=== PATIENT | female | born 1945 | race Caucasian/White ===

== ENCOUNTER → 2017-12-25 08:23 | Outpatient (CLI) | payer MEDICARE, SELFPAY ==
[2017-12-25 09:03] LABS: Basophils % 0.4 % (0.1-2.0); Eosinophils % 0.8 % (0.1-12.0); Hematocrit 41.4 % (37.0-47.0); Hemoglobin 13.6 g/dL (12.2-16.2); Lymphocytes # 1.3 K/mm3 (0.7-4.5); Mean Corpuscular HGB Conc 32.8 g/dL (31.8-35.4); Mean Corpuscular Volume 91.7 fl (81-99); Mean Platelet Volume 6.8 fl (7.4-10.4); Monocytes # 0.4 K/mm3 (0.1-1.0); Monocytes % 7.4 % (1.7-9.3); Neutrophils # 3.7 K/mm3 (1.8-7.8); Neutrophils % 67.3 % (37.0-80.0); Platelet Count 300 K/mm3 (142-424); Red Blood Count 4.51 M/mm3 (4.20-5.40); Red Cell Distribution Width 12.4 % (11.5-17.5); White Blood Count 5.4 K/mm3 (4.8-10.8)
[2017-12-25 09:27] LABS: Alanine Aminotransferase 47 U/L (12-78); Albumin Level 3.6 gm/dL (3.4-5.0); Alkaline Phosphatase 105 U/L (46-116); Anion Gap 13.7 mEq/L (5-15); Aspartate Amino Transferase 25 U/L (15-37); Bilirubin,Total 0.6 mg/dL (0.2-1.0); Blood Urea Nitrogen 7 mg/dL (7-18); Calcium 9.8 mg/dL (8.5-10.1); Carbon Dioxide 28 mmol/L (21.0-32.0); Chloride 97 mmol/L (98-107); Cholesterol 172 mg/dL (140-200); Creatinine,Serum 0.74 mg/dL (0.55-1.02); Estimated Glomerular Filt Rate 78 ml/min (>60); GFR (African American) 94 ML/MIN (>60); Globulin 3.6 gm/dl (1.3-3.2); Glucose 154 mg/dL (74-106); HDL Cholesterol 58 mg/dL (29-89); LDL Cholesterol 91 mg/dL (0-130); Potassium 3.7 mmoL/L (3.5-5.1); Sodium 135 mmol/L (136-145); Total Protein,Serum 7.2 gm/dL (6.4-8.2); Triglycerides 113 mg/dL (30-200); VLDL Cholesterol 23 mg/dL (0-40)
[2017-12-25 09:36] LABS: Hemoglobin A1C 6.7 % (0.0-7.0)
[2017-12-26 15:24] LABS: Microalbumin, Urine 26.3 ug/mL (Not Estab.)
== END ==
PROVIDERS: Visit Provider Internal Medicine
DX: E11.42 Type 2 diabetes mellitus with diabetic polyneuropathy (principal); I10 Essential (primary) hypertension; E78.5 Hyperlipidemia, unspecified
CPT/HCPCS: 36415; 80053; 80061; 82043; 83036; 85025

== ENCOUNTER → 2018-02-05 17:08 | Outpatient (REF) | payer MEDICARE, SELFPAY | LOC: LAB 17:08 | PROVIDERS: Visit Provider Internal Medicine | DX: L03.032 Cellulitis of left toe (principal); E11.621 Type 2 diabetes mellitus with foot ulcer; L97.529 Non-pressure chronic ulcer of other part of left foot with unspecified severity | CPT/HCPCS: 87070; 87077; 87186; 87205 ==

== ENCOUNTER → 2019-02-07 10:34 | Outpatient (CLI) | payer MEDICARE, SELFPAY | PROVIDERS: PCP Internal Medicine; Visit Provider Internal Medicine | DX: R01.1 Cardiac murmur, unspecified (principal); I10 Essential (primary) hypertension | CPT/HCPCS: 93306 ==

== ENCOUNTER → 2019-06-08 07:50 | Outpatient (CLI) | payer MEDICARE, SELFPAY ==
[2019-06-08 08:58] LABS: Alanine Aminotransferase 34 U/L (12-78); Albumin Level 3.6 gm/dL (3.4-5.0); Albumin/Globulin Ratio 1.1 (1.1-1.8); Alkaline Phosphatase 128 U/L (46-116); Aspartate Amino Transferase 18 U/L (15-37); Bilirubin,Total 0.7 mg/dL (0.2-1.0); Blood Urea Nitrogen 11 mg/dL (7-18); Calcium 9.2 mg/dL (8.5-10.1); Carbon Dioxide 26 mmol/L (21.0-32.0); Chloride 98 mmol/L (98-107); Chol/HDL Ratio 2.7 (1-3.5); Cholesterol 216 mg/dL (140-200); Creatinine,Serum 0.81 mg/dL (0.55-1.02); Estimated Glomerular Filt Rate 70 ml/min (>60); GFR (African American) 84 ML/MIN (>60); Globulin 3.3 gm/dl (1.3-3.2); Glucose 145 mg/dL (74-106); HDL Cholesterol 81 mg/dL (29-89); LDL Cholesterol 118 mg/dL (0-130); Sodium 136 mmol/L (136-145); Total Protein,Serum 6.9 gm/dL (6.4-8.2); Triglycerides 86 mg/dL (30-200); VLDL Cholesterol 17 mg/dL (0-40)
[2019-06-08 09:03] LABS: Hemoglobin A1C 7.4 % (0.0-7.0)
[2019-06-13 05:18] LABS: Microalbumin, Urine 6.7 ug/mL (Not Estab.)
== END ==
PROVIDERS: Visit Provider Internal Medicine
DX: E11.42 Type 2 diabetes mellitus with diabetic polyneuropathy (principal); I10 Essential (primary) hypertension; E78.5 Hyperlipidemia, unspecified
CPT/HCPCS: 36415; 80053; 80061; 82043; 83036

== ENCOUNTER → 2020-01-04 08:39 | Outpatient (CLI) | payer MEDICARE, SELFPAY ==
[2020-01-04 09:41] LABS: Creatinine,Urine Random 53 mg/dL (Not Estab.); Hemoglobin A1C 6.2 % (4.0-6.0)
[2020-01-04 09:44] LABS: Microalbumin/Creatinine Ratio 44.1
[2020-01-04 10:03] LABS: Chloride 99 mmol/L (98-107); Potassium 4.2 mmoL/L (3.5-5.1); Sodium 136 mmol/L (136-145)
[2020-01-04 10:05] LABS: Alanine Aminotransferase 35 U/L (12-78); Aspartate Amino Transferase 37 U/L (14-36); Blood Urea Nitrogen 13 mg/dl (7-17); Estimated Glomerular Filt Rate 98 ml/min (>60); GFR (African American) 119 ML/MIN (>60)
[2020-01-04 10:06] LABS: Albumin Level 4.4 g/dl (3.5-5.0); Albumin/Globulin Ratio 1.8 (1.1-1.8); Alkaline Phosphatase 107 U/L (38-126); Anion Gap 14.2 mEq/L (5-15); Bilirubin,Total 0.9 mg/dl (0.2-1.3); Calcium 10.1 mg/dl (8.4-10.2); Carbon Dioxide 27 mmol/L (22.0-30.0); Chol/HDL Ratio 2.9 (1-3.5); Cholesterol 220 mg/dl (140-200); Globulin 2.5 g/dL (1.3-3.2); Glucose 133 mg/dl (74-100); HDL Cholesterol 75 mg/dl (40-60); Total Protein,Serum 6.9 g/dl (6.3-8.2); Triglycerides 181 mg/dl (30-150); VLDL Cholesterol 36 mg/dL (0-40)
[2020-01-04 10:17] LABS: Direct LDL Cholesterol 120.94 mg/dL (100-129)
== END ==
PROVIDERS: Visit Provider Internal Medicine
DX: E11.42 Type 2 diabetes mellitus with diabetic polyneuropathy (principal); E78.2 Mixed hyperlipidemia; I10 Essential (primary) hypertension
CPT/HCPCS: 36415; 80053; 80061; 82043; 82570; 83036

== ENCOUNTER → 2021-11-01 14:22 | Outpatient (CLI) | payer MEDICARE, SELFPAY ==
[2021-11-01 15:15] LABS: Basophils # 0.1 K/mm3 (0-0.2); Basophils % 1.3 % (0.1-2.0); Eosinophils # 0.1 K/mm3 (0.0-0.4); Eosinophils % 1.1 % (0.1-12.0); Hematocrit 37.5 % (37.0-47.0); Hemoglobin 12.9 g/dL (12.2-16.2); Lymphocytes # 1.6 K/mm3 (0.7-4.5); Mean Corpuscular HGB Conc 34.5 g/dL (31.8-35.4); Mean Corpuscular Hemoglobin 33.2 pg (27.0-31.2); Mean Corpuscular Volume 96.2 fl (81-99); Monocytes # 0.6 K/mm3 (0.1-1.0); Monocytes % 9.8 % (1.7-9.3); Neutrophils # 3.5 K/mm3 (1.8-7.8); Neutrophils % 59.8 % (37.0-80.0); Platelet Count 266 K/mm3 (142-424); Red Cell Distribution Width 13.3 % (11.5-17.5); White Blood Count 5.8 K/mm3 (4.8-10.8)
[2021-11-01 15:31] LABS: Alanine Aminotransferase 50 U/L (12-78); Albumin Level 4.3 g/dl (3.5-5.0); Albumin/Globulin Ratio 1.8 (1.1-1.8); Alkaline Phosphatase 129 U/L (38-126); Aspartate Amino Transferase 46 U/L (14-36); Bilirubin,Total 0.4 mg/dl (0.2-1.3); Blood Urea Nitrogen 13 mg/dl (7-17); Calcium 9.8 mg/dl (8.4-10.2); Carbon Dioxide 27 mmol/L (22.0-30.0); Chloride 94 mmol/L (98-107); Chol/HDL Ratio 3.2 (1-3.5); Cholesterol 210 mg/dl (140-200); Estimated Glomerular Filt Rate 70 ml/min (>60); GFR (African American) 85 ML/MIN (>60); Globulin 2.4 g/dL (1.3-3.2); Glucose 166 mg/dl (74-100); HDL Cholesterol 65 mg/dl (40-60); Sodium 131 mmol/L (136-145); Total Protein,Serum 6.7 g/dl (6.3-8.2); Triglycerides 112 mg/dl (30-150); VLDL Cholesterol 22 mg/dL (0-40)
[2021-11-01 15:40] LABS: Hemoglobin A1C 7.8 % (4.0-6.0)
[2021-11-01 15:41] LABS: Direct LDL Cholesterol 111.24 mg/dL (100-129)
[2021-11-01 16:03] LABS: Creatinine,Urine Random 21 mg/dL (Not Estab.)
[2021-11-01 16:07] LABS: Microalbumin/Creatinine Ratio 46.1
== END ==
PROVIDERS: PCP Internal Medicine; Visit Provider Internal Medicine
DX: E11.42 Type 2 diabetes mellitus with diabetic polyneuropathy (principal); E11.29 Type 2 diabetes mellitus with other diabetic kidney complication; E78.5 Hyperlipidemia, unspecified; M15.0 Primary generalized (osteo)arthritis; R80.1 Persistent proteinuria, unspecified
CPT/HCPCS: 80053; 80061; 82043; 82570; 83036; 85025

== ENCOUNTER → 2022-01-11 13:17 | Outpatient (CLI) | payer MEDICARE, SELFPAY ==
[2022-01-11 14:50] LABS: Creatinine,Urine Random 19 mg/dL (Not Estab.)
[2022-01-11 14:51] LABS: Basophils % 0.3 % (0.1-2.0); Eosinophils % 0.7 % (0.1-12.0); Hematocrit 35.9 % (37.0-47.0); Hemoglobin 12.2 g/dL (12.2-16.2); Lymphocytes # 0.8 K/mm3 (0.7-4.5); Lymphocytes % 12.4 % (10-50); Mean Corpuscular HGB Conc 34.1 g/dL (31.8-35.4); Mean Corpuscular Hemoglobin 32.1 pg (27.0-31.2); Mean Platelet Volume 7.7 fl (7.4-10.4); Monocytes # 0.6 K/mm3 (0.1-1.0); Monocytes % 8.2 % (1.7-9.3); Neutrophils # 5.3 K/mm3 (1.8-7.8); Neutrophils % 78.5 % (37.0-80.0); Platelet Count 280 K/mm3 (142-424); Red Blood Count 3.82 M/mm3 (4.20-5.40); Red Cell Distribution Width 12.8 % (11.5-17.5); White Blood Count 6.8 K/mm3 (4.8-10.8)
[2022-01-11 14:54] LABS: Microalbumin/Creatinine Ratio 40.5
[2022-01-11 15:14] LABS: Alanine Aminotransferase 35 U/L (12-78); Albumin/Globulin Ratio 1.6 (1.1-1.8); Alkaline Phosphatase 121 U/L (38-126); Anion Gap 12.4 mEq/L (5-15); Aspartate Amino Transferase 35 U/L (14-36); Bilirubin,Total 0.5 mg/dl (0.2-1.3); Blood Urea Nitrogen 13 mg/dl (7-17); Calcium 9.9 mg/dl (8.4-10.2); Carbon Dioxide 28 mmol/L (22.0-30.0); Chloride 95 mmol/L (98-107); Chol/HDL Ratio 2.9 (1-3.5); Cholesterol 187 mg/dl (140-200); Estimated Glomerular Filt Rate 98 ml/min (>60); GFR (African American) 118 ML/MIN (>60); Globulin 2.5 g/dL (1.3-3.2); Glucose 151 mg/dl (74-100); HDL Cholesterol 64 mg/dl (40-60); Potassium 4.4 mmoL/L (3.5-5.1); Sodium 131 mmol/L (136-145); Total Protein,Serum 6.5 g/dl (6.3-8.2); Triglycerides 109 mg/dl (30-150); VLDL Cholesterol 22 mg/dL (0-40)
[2022-01-11 15:25] LABS: Direct LDL Cholesterol 97.24 mg/dL (100-129)
[2022-01-11 15:33] LABS: Hemoglobin A1C 7.1 % (4.0-6.0)
== END ==
PROVIDERS: PCP Internal Medicine; Visit Provider Internal Medicine
DX: E11.42 Type 2 diabetes mellitus with diabetic polyneuropathy (principal); E11.29 Type 2 diabetes mellitus with other diabetic kidney complication; I10 Essential (primary) hypertension; I87.2 Venous insufficiency (chronic) (peripheral); E78.5 Hyperlipidemia, unspecified; R80.1 Persistent proteinuria, unspecified; I89.0 Lymphedema, not elsewhere classified
CPT/HCPCS: 80053; 80061; 82043; 82570; 83036; 85025

== ENCOUNTER → 2022-01-25 16:23 | Outpatient (CLI) | payer MEDICARE, SELFPAY ==
--- NOTE | 2022-01-25 16:31 | XR_ITS ---
PROCEDURE INFORMATION: Exam: XR Right Toe(s) Exam date and time: 01/25/2022 4:33 PM Age: 76 years old Clinical indication: Condition or disease; Other: Right great toe infected; Additional info: Ulcer infected TECHNIQUE: Imaging protocol: Radiologic exam of the Right toes. Views: Minimum 2 views. COMPARISON: No relevant prior studies available. FINDINGS: Bones/joints: Nondisplaced fracture involving the distal phalanx. Subtle irregularity of the bony cortex of the 1st distal phalanx. Could not exclude developing osteomyelitis. 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 Joint space widening with deformity of the 2nd through 5th metatarsal heads. Less pronounced changes demonstrated involving the 2nd and 4th PIP joints. Soft tissues: Diffuse soft tissue swelling. IMPRESSION: 1. Nondisplaced fracture involving the distal phalanx. 2. Subtle irregularity of the bony cortex of the 1st distal phalanx. Could not exclude developing osteomyelitis. 3. Diffuse soft tissue swelling most pronounced involving the great toe.
== END ==
PROVIDERS: PCP Internal Medicine; Visit Provider Internal Medicine
DX: S92.414A Nondisplaced fracture of proximal phalanx of right great toe, initial encounter for closed fracture (principal)
CPT/HCPCS: 73660

== ENCOUNTER → 2022-01-28 09:56 | Outpatient (CLI) | payer MEDICARE, SELFPAY ==
--- NOTE | 2022-01-28 09:59 | NM_ITS ---
FINAL REPORT TECHNIQUE: Blood flow, blood pool, and delayed images of the bilateral ankles and feet were obtained after the intravenous injection of 24.8 mCi technetium 99 M MDP. CLINICAL HISTORY: DIABETIC PT. NON HEALING RT GREAT TOE SORE 10:50AM 24.8MCI TC MDP INJ INTO LT ANT FINDINGS: Correlation was made to right foot radiographs dated January 25, 2022 and left ankle radiographs dated January 28, 2022. On the blood flow images, increased blood flow is noted to the right great toe and left ankle. On the blood pool images, increased activity is noted to the right great toe and left ankle. On the delayed images, increased tracer activity is noted to the right great toe and left ankle. IMPRESSION: Increase blood flow, blood pool, and delayed activity to the tip of the right great toe. Since there is a fracture in this region, this may be related to the fracture. Osteomyelitis cannot be excluded. Increased activity seen to the left ankle response to the severe degenerative change seen on x-rays. Reviewed, Interpreted and Dictated by Tez Chatman III, MD Transcribed by Kendra Blackmon Authenticated and . [facility]
--- NOTE | 2022-01-28 14:58 | XR_ITS ---
FINAL REPORT CLINICAL HISTORY: s/p bone scan FINDINGS: Left ankle Three views were obtained. There is a chronic fracture of the distal tibia. 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 Soft tissue calcification and soft tissue swelling are seen. IMPRESSION: Severe degenerative changes as above. Reviewed, Interpreted and Dictated by Tez Chatman III, MD Transcribed by Kendra Blackmon Authenticated and [facility]
== END ==
PROVIDERS: PCP Internal Medicine; Visit Provider Internal Medicine
DX: S92.414A Nondisplaced fracture of proximal phalanx of right great toe, initial encounter for closed fracture (principal)
CPT/HCPCS: 73610; 78315; A9503